=== PATIENT | male | born 1960 | race African-American/Black ===

== ENCOUNTER 2018-04-19 13:48 | Emergency (ER) | payer OTHER ==
[2018-04-19 13:56] VITALS: BP 141/111; PULSE 68; TEMP 98; BMI 24.4
[2018-04-19] MEDS ORDERED: IBUPROFEN 600 MG TABLET (FP) PO ONE ×2 (14:39→14:43)
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
== END 2018-04-19 14:56 | disposition home or self-care (01) ==
LOC: JERFT 13:48
DX: S13.4XXA Sprain of ligaments of cervical spine, initial encounter (principal); V43.52XA Car driver injured in collision with other type car in traffic accident, initial encounter; Y92.488 Other paved roadways as the place of occurrence of the external cause; Y93.89 Activity, other specified; Y99.8 Other external cause status
CPT/HCPCS: 99281-25